=== PATIENT | female | born 1955 | race Caucasian/White ===

== ENCOUNTER → 2023-09-28 07:56 | Outpatient (REF) | payer MEDICARE, BC, SELFPAY ==
[2023-09-28 08:58] LABS: % Basophils 1.1 % (0-2); % Eosinophils 2.4 % (0-6); % Lymphocytes 55.3 % (20.5-51.1); % Monocytes 10.1 % (1.7-9.3); % Neutrophils 31.1 % (42.2-75.2); Absolute Basophils 0.1 10^3/uL (0-0.2); Absolute Eosinophils 0.1 10^3/uL (0-0.7); Absolute Lymphocytes 3.1 10^3/uL (1.2-3.4); Absolute Monocytes 0.6 10^3/uL (0.1-0.6); Absolute Neutrophils 1.7 10^3/uL (1.4-6.5); Hematocrit 41.5 % (37.0-47.0); Hemoglobin 13.8 g/dL (12.0-16.0); Mean Corp Hgb Conc. 33.3 g/dL (33.0-37.0); Mean Corpuscular Hgb 31.6 pg (27.0-31.0); Mean Platelet Volume 9.8 fL (7.4-10.4); Nucleated Red Blood Cells % 0 %; Platelet Count 269 10^3/uL (130-400); Red Blood Cell Count 4.37 10^6/uL (4.20-5.40); Red Cell Dist. Width 12.8 % (11.5-14.5); White Blood Cell Count 5.5 10^3/uL (4.8-10.8)
[2023-09-28 09:30] LABS: Blood Urea Nitrogen 20 mg/dl (7-17); Calcium 10.4 mg/dl (8.4-10.2); Carbon Dioxide 30 mmol/L (22-30); Chloride 101 mmol/L (98-107); Glucose 88 mg/dl (70-99); Potassium 4.3 mmol/L (3.5-5.1); Sodium 139 mmol/L (135-145); eGFR > 60.00
== END ==
LOC: REG 07:56
PROVIDERS: ATTENDING PHYSICIAN Specialist; FAMILY PHYSICIAN Physician Assistant Medical
DX: Z01.818 Encounter for other preprocedural examination (principal)
CPT/HCPCS: 36415; 80048; 85025; 93005

== ENCOUNTER → 2024-01-29 15:19 | Outpatient (REF) | payer MEDICARE, BC, SELFPAY | LOC: HWWDC 15:19 | PROVIDERS: ATTENDING PHYSICIAN Physician Assistant Medical | DX: Z12.31 Encounter for screening mammogram for malignant neoplasm of breast (principal) | CPT/HCPCS: 77063; 77067 ==

== ENCOUNTER 2024-02-25 16:19 | Emergency (ER) | payer MEDICARE, BC, SELFPAY ==
[2024-02-25 16:21] VITALS: BP 193/89
[2024-02-25 19:13] VITALS: BP 176/71
--- NOTE | 2024-02-25 19:34 | ED.GENMED ---
History of Present Illness
General
Chief Complaint: DVT/Possible Blood Clot
Source: patient
Exam Limitations: none
Time Seen by Provider: 02/25/24 16:45
Nursing documentation reviewed up to this point in time: agreed with
History of Present Illness
History of Present Illness:
68-year-old female past medical history of GERD ulcerative colitis presenting to the emergency department today with concerns of right-sided calf discomfort with some posterior calf bruising. Was recently in [place] flew back 2 days ago. Did do
a large amount of walking and felt some discomfort to her calf throughout the week. Denies any chest pain shortness of breath nausea vomiting. Denies history of blood clots.
Past History
Past History
ED Past Medical History: Hypercholesterolemia and Other (Ulcerative colitis)
Social History
Tobacco: Non-smoker
Review of Systems
Review of Systems
Allergies reviewed?: Yes
All Other Systems: ROS reviewed and negative except as documented in HPI and ROS
Phy Exam
Physical Exam
Physical Exam:
GENERAL: Alert , in no apparent distress
EYE: pupils equal and reactive
NECK: Supple, no significant adenopathy.
ENT: o/p clr, mmm.
CARDIAC: Regular rate and rhythm .
LUNGS: Clear breath sounds bilaterally, no acute respiratory distress, no wheezes/rales/rhonchi
ABDOMEN: Soft, without focal tenderness, no r/g, no cvat
NEUROLOGICAL: Alert and oriented, no focal neuro deficits
SKIN: Warm and dry, skin intact.
MUSCULOSKELETAL: Mild swelling and tender to palpation to the right calf small amount of bruising posteriorly normal distal pulses, well perfused.
PSYCH: Normal and appropriate interaction.
Course
Orders/Labs/Results
Orders:
Orders
02/25/24 16:24
US Legs, Right [US Periph Venous LOWER Ext RT] Urgent
Comment:
Reason For Exam: right calf pain and swelling
Vital Signs
Initial and Last Documented VS:
Initial Vital Signs
Temp Pulse Resp BP Pulse Ox
98.3 F 100 20 193/89 98
02/25/24 16:21 02/25/24 16:21 02/25/24 16:21 02/25/24 16:21 02/25/24 16:21
Last Documented Vital Signs
Temp Pulse Resp BP Pulse Ox
98.3 F 64 20 176/71 98
02/25/24 16:21 02/25/24 19:13 02/25/24 16:21 02/25/24 19:13 02/25/24 18:11
MDM/Problems Addressed
MDM/Problems Addressed:
68-year-old female presenting to the emergency department today with concerns of right-sided calf discomfort and swelling over the past week worse over the past few days since flying back from [place]. Upon arrival patient hypertensive this was
improving without specific treatment here in the 170s. She was vies of high blood pressure and advised to monitor this at home and follow-up closely for this. Denies any chest pain or signs or symptoms consistent with hypertensive emergency.
Ultrasound performed of the right leg without signs of clot but does show Injury that does explain patient's symptoms. Patient advised to rest ice compress and elevate and follow-up as an outpatient. Return precautions given.
*Critical Care Note
Total Time (30-74mins, 75-104mins- exclusive of procedures): Not Applicable
ED Attending Note
-
Portions of this chart may have been created with voice recognition software.� Occasional wrong word or��sound alike� substitutions may have occurred due to the inherent limitations of voice recognition software.
Discharge Plan
Departure
Patient Disposition: Home (Routine Discharge)
Date of Disposition: 02/25/24
Time of Disposition: 19:42
Patient with high blood pressure during this ER visit?: Yes
Condition: Good
Covid-19: Not Applicable
Discharge Problem:
Injury of calf
Instructions: Muscle Strain (DC), BLOOD PRESSURE
Prescriptions:
No Action
polyethylene glycol 3350 17 GRAMS powder in packet
8.5 - 17 grams PO DAILY
Lactobacillus acidophilus [Acidophilus] 1 CAP capsule
1 cap PO DAILY
mesalamine [Canasa] 500 MG suppository
500 mg MI DAILY
omeprazole 40 MG capsule,delayed release(DR/EC)
40 mg PO DAILY
aspirin 81 MG tablet,delayed release (DR/EC)
81 mg PO DAILY
tramadol 50 MG tablet
50 mg PO PRN PRN (Reason: pain)
acetaminophen [Tylenol Extra Strength] 500 MG tablet
500 mg PO TID
famotidine [Pepcid AC] 20 MG tablet
20 mg PO HS
simethicone [Gas-X Extra Strength] 125 MG tablet,chewable
125 mg PO PRN PRN (Reason: GAS)
loratadine 10 MG tablet
10 mg PO PRN PRN (Reason: alleriges)
rosuvastatin [Crestor] 40 MG tablet
40 mg PO QPM
levocetirizine [Xyzal] 5 MG tablet
5 mg PO PRN PRN (Reason: allergies)
cholecalciferol (vitamin D3) 2,000 UNITS tablet
2,000 units PO DAILY
omega 3-lld-twq-fish oil [Fish Oil] 1 EACH capsule
1 ea PO BID
calcium nwt-faz-[id number]-Zn-endoscopy specialty technician-sundar [Calcium Citrate Plus] 1 EACH tablet
1 ea PO DAILY
vedolizumab [Entyvio] 300 MG/5 ML recon soln
300 mg IV [id number]
mometasone [Asmanex HFA] 13 GM HFA aerosol inhaler
1 spray inhalation DAILY
Biotin 1 TAB Tab
1 tab PO TID
Referrals:
Binta Regalado PA-C [Family Provider] -
Activity Restrictions/Additional Instructions:
You came to the emergency department today with concerns of right-sided calf discomfort. Here you had an ultrasound without evidence of blood clot but does show potential muscle injury. Please rest ice compress and elevate and follow-up closely as
an outpatient. Also your blood pressure was elevated please follow closely and have this reassessed. Return to the emergency department for any worsening, new or concerning symptoms.
Interventions
Interventions:
*Risk Screen - Suicide Last Done: 02/25/24 16:21
*General Assessment Last Done: 02/25/24 16:21
*Neglect/Abuse Screening Last Done: 02/25/24 16:21
ED- Cardiac Assessment Last Done: 02/25/24 18:11
ED- Pulmonary Assessment Last Done: 02/25/24 18:11
ED-Skin Assessment Last Done: 02/25/24 18:11
Discharge Date and Time
Print Language: ROMANSH
[2024-02-25 19:51] VITALS: BP 176/71
== END 2024-02-25 19:54 | disposition home or self-care (01) ==
LOC: EMR 16:19
PROVIDERS: EMERGENCY PHYSICIAN Student in an Organized Health Care Education/Training Program; FAMILY PHYSICIAN Physician Assistant Medical
DX: S89.91XA Unspecified injury of right lower leg, initial encounter (principal); S80.11XA Contusion of right lower leg, initial encounter; X58.XXXA Exposure to other specified factors, initial encounter; E78.00 Pure hypercholesterolemia, unspecified; K51.90 Ulcerative colitis, unspecified, without complications; K21.9 Gastro-esophageal reflux disease without esophagitis
CPT/HCPCS: 99284; 93971

== ENCOUNTER → 2025-01-29 15:32 | Outpatient (REF) | payer MEDICARE, BC, SELFPAY | LOC: HWWDC 15:32 | PROVIDERS: ATTENDING PHYSICIAN Physician Assistant Medical | DX: Z12.31 Encounter for screening mammogram for malignant neoplasm of breast (principal) | CPT/HCPCS: 77063; 77067 ==